=== PATIENT | male | born 1965 | race Two or more races ===

== ENCOUNTER 2021-09-26 18:18 | Emergency (ER) | payer SELFPAY ==
[~2021-09-26] VITALS: Ht 170.2 cm; Wt 90.7 kg
[2021-09-26 18:28] VITALS: BP 133/85
[2021-09-26] MEDS ORDERED: KETOROLAC TROMETHAMINE INJ 60 MG/2 ML VIAL IM ONE (20:00)
[2021-09-26] MEDS ORDERED: KETOROLAC TROMETHAMINE INJ 30 MG/ML VIAL ONE (20:06)
[2021-09-26] MEDS ORDERED: NAPR-1164 PO (20:31)
[2021-09-26] MEDS ORDERED: METH-647 PO (20:31)
== END 2021-09-26 20:58 | disposition home or self-care (01) ==
LOC: ER 18:31
DX: S16.1XXA Strain of muscle, fascia and tendon at neck level, initial encounter (principal); M25.512 Pain in left shoulder; M62.838 Other muscle spasm; Z79.899 Other long term (current) drug therapy; W18.39XA Other fall on same level, initial encounter; Y93.89 Activity, other specified; Y92.89 Other specified places as the place of occurrence of the external cause; Y99.8 Other external cause status
CPT/HCPCS: 73030; 96372; 99283; J1885

== ENCOUNTER 2022-09-23 17:37 | Emergency (ER) | payer MEDICAID ==
[~2022-09-23] VITALS: Ht 165.1 cm; Wt 83.9 kg
[~2022-09-23 17:37] MED LIST: METH-647 PO; NAPR-1164 PO
[2022-09-23 18:00] VITALS: BP 140/73
[2022-09-23] MEDS ORDERED: CYCLOBENZAPRINE 10 MG TABLET ONE (18:22)
[2022-09-23] MEDS ORDERED: CYCLOBENZAPRINE 10 MG TABLET PO ONE (18:30)
[2022-09-23] MEDS ORDERED: NAPR-1009 PO (18:44)
[2022-09-23] MEDS ORDERED: CYCL10TA9 PO (18:44)
== END 2022-09-23 19:37 | disposition home or self-care (01) ==
LOC: ER 17:41
DX: M54.50 Low back pain, unspecified (principal); M79.642 Pain in left hand; R51.9 Headache, unspecified; Z79.899 Other long term (current) drug therapy; W01.0XXA Fall on same level from slipping, tripping and stumbling without subsequent striking against object, initial encounter; Y93.89 Activity, other specified; Y92.091 Bathroom in other non-institutional residence as the place of occurrence of the external cause; Y99.8 Other external cause status
CPT/HCPCS: 70450-TC; 72100-TC; 72170-TC; 73130-TC